=== PATIENT | male | born 1955 | race Hispanic/Latino ===

== ENCOUNTER → 2025-08-13 | Outpatient (CLI) | payer OTHER ==
[2025-08-13 12:39] LABS: CREATININE 1.1 mg/dL (0.5-1.3); GLOMERULAR FILTR. RATE CALC 71.0 mL/min (>90); UREA NITROGEN, BLOOD 13.0 mg/dL (7-18)
== END | disposition home or self-care (01) ==
LOC: LAB 11:32
PROVIDERS: ATTEND Internal Medicine
DX: R10.11 Right upper quadrant pain (principal); R63.4 Abnormal weight loss
CPT/HCPCS: 36415; 82565; 84520

== ENCOUNTER → 2025-08-21 | Outpatient (CLI) | payer OTHER ==
[~2025-08-21] MED LIST: IOHEXOL-350 75 ML VIAL IV ONE
--- NOTE | 2025-08-21 20:36 | HMCIMG ---
EXAM: CT ABDOMEN AND PELVIS WITH INTRAVENOUS CONTRAST CLINICAL HISTORY: Right upper quadrant pain, abnormal weight loss. TECHNIQUE: Axial CT images of the abdomen and pelvis were obtained after IV contrast administration. Multiplanar reconstructions. 7 minutes delayed images were also acquired. The protocol utilizes one or more of the following dose reduction techniques: automated exposure control, adjustment of mA and/or kV according to patient size, and/or use of iterative reconstruction technique. The radiation dose is total exam DLP 795. COMPARISON: None. FINDINGS: LOWER CHEST: Lung bases are clear. No cardiomegaly or pericardial effusion observed. LIVER: There are few tiny hepatic hypodensities, too small to characterize. The hepatic size is normal. GALLBLADDER AND BILIARY TREE: The gallbladder is unremarkable. No calcified gallstones. There is no gallbladder distension or wall edema. No intra- or extrahepatic biliary ductal dilation. PANCREAS: The pancreas is unremarkable. SPLEEN: The spleen is unremarkable. There is a splenuncule measuring 1.6 cm. Persistent lobulations are present. ADRENAL GLANDS: The adrenals are unremarkable. KIDNEYS AND URETERS: Normal renal size and position. There is a tiny left renal upper polar 4 mm sized simple cyst. Per consensus, no follow-up is needed for simple Bosniak type 1 and 2 renal cysts, unless the patient has a malignancy history or risk factors. No renal, ureteral calculi, or hydroureteronephrosis on either side. 7 minutes delayed images demonstrate normal contrast excretion through the both renal pelvicalyceal systems and ureters without hydroureteronephrosis. URINARY BLADDER: There is diffuse thickening of the urinary bladder wall, which may represent sequelae of chronic bladder outflow obstruction. REPRODUCTIVE ORGANS: There is moderate prostatomegaly with peripheral calcifications. No pelvic masses or pelvic ascites. BOWEL: The appendix is unremarkable, series 2, image 51/95. There are colonic diverticula, without diverticulitis. No stomach or bowel distension. No focal inflammatory change observed. LYMPH NODES: Not enlarged mesenteric or retroperitoneal lymph nodes. PERITONEUM: No ascites or free air. No other fluid collection. VESSELS: The abdominal aorta demonstrates atheromatous calcification without aneurysm or dissection. ABDOMINAL WALL: No discrete abdominal or pelvic wall hernia observed. BONES: There is minimal levoscoliosis of the lumbar spine. There are degenerative changes in the both hip joints. There are degenerative changes in the spine. No lytic or blastic abnormality observed. IMPRESSION: 1. No acute intra-abdominal or pelvic process. 2. No intra-abdominal mass or lymphadenopathy. 3. Other chronic and ancillary findings as described. See the body of the report. /[place]
== END | disposition home or self-care (01) ==
LOC: RAH 07:49
PROVIDERS: ATTEND Internal Medicine
DX: N28.1 Cyst of kidney, acquired (principal); N40.0 Benign prostatic hyperplasia without lower urinary tract symptoms; M41.86 Other forms of scoliosis, lumbar region; M46.1 Sacroiliitis, not elsewhere classified; M47.817 Spondylosis without myelopathy or radiculopathy, lumbosacral region; D73.89 Other diseases of spleen; R10.11 Right upper quadrant pain
CPT/HCPCS: 74177; Q9967